=== PATIENT | male | born 1980 | race Caucasian/White ===

== ENCOUNTER 2018-09-11 18:10 | Emergency (ER) | payer MEDICAID, OTHER ==
[2018-09-11 19:26] VITALS: BP 139/83
--- NOTE | 2018-09-11 19:58 | UC ---
Throat Pain/Nasal Farshad HPI - HPI Summary HPI Summary: 38 y/o male presents to the urgent care c/o sinus pain, congestion w/ green nasal discharge and moderate PND for the past 10 days. Pt has Hx or recurrent sinusitis. He saw his PCP about 1 week ago and he recommended symptomatic treatment w/ Sudafed and Rx flonase nasal spray. symptoms worsen yesterday when he developed Rt eye redness. This morning he woke up w/ his Rt eye closed and yellowish crusting discharge. Pt denies fever, dizziness, SOB, chest pain, abdominal pain, N/V/d. - History of Current Complaint Chief Complaint: UCRespiratory Stated Complaint: SINUS AND EYE COMPLAINT Time Seen by Provider: 09/11/18 19:44 Hx Obtained From: Patient Onset/Duration: Gradual Onset, Lasting Weeks - 10 days, Still Present, Worse Since - 3 days Severity: Moderate Pain Intensity: 4 Pain Scale Used: 0-10 Numeric Cough: Nonproductive Associated Signs & Symptoms: Positive: Sinus Discomfort, Nasal Discharge - yellowish. Negative: Wheezing - Epiglottits Risk Factors Epiglottis Risk Factors: Negative - Allergies/Home Medications Allergies/Adverse Reactions: Allergies Allergy/AdvReac Type Severity Reaction Status Date / Time No Known Allergies Allergy Verified 09/11/18 19:26 Home Medications: Home Medications Baclofen TAB* [Lioresal TAB*] 5 mg PO DAILY 09/11/18 [History Confirmed 09/11/18 ] Marijuana 1 09/11/18 [History] PMH/Surg Hx/FS Hx/Imm Hx Previously Healthy: Yes Other Respiratory History: recurrent sinusitis Other History Of: Negative For: HIV, Hepatitis B, Hepatitis C, Anticoagulant Therapy - Surgical History Surgical History: Yes Surgery Procedure, Year, and Place: VASECTOMY - Family History Known Family History: Negative: Cardiac Disease, Hypertension Family History: dyslipidemia - Social History Occupation: Employed Full-time Lives: With Family Alcohol Use: None Substance Use Type: None Smoking Status (MU): Former Smoker Household Exposure Type: Cigars Review of Systems All Other Systems Reviewed And Are Negative: Yes Constitutional: Positive: Negative Skin: Positive: Negative Eyes: Positive: Drainage - yellowish crusting, Eye Redness - RT eye ENT: Positive: Nasal Discharge - yellowish, Sinus Congestion, Sinus Pain/ Tenderness, Other - PND Respiratory: Positive: Cough - dry Cardiovascular: Positive: Negative Gastrointestinal: Positive: Negative Genitourinary: Positive: Negative Motor: Positive: Negative Neurovascular: Positive: Negative Musculoskeletal: Positive: Negative Neurological: Positive: Headache Psychological: Positive: Negative Is Patient Immunocompromised?: No Physical Exam - Summary Physical Exam Summary: Vitals: reviewed General: Well developed, well-nourished male patient with NAD. Head and face: Normocephalic and atraumatic, Positive tenderness over the frontal and maxillary sinuses.. Eyes: Positive: RT eye Conjunctiva Inflamed - Visual acuity: WNL,Visual [place]: full to confrontation. PERRLA, EOMI intact w/out limitation or complaint of pain. eyelashes clear. mild tearing and yellowish drainage observed. No ciliary flush. No chemosis, No photophobia. Normal fundoscopic exam; no proptosis, exophthalmos, nystagmus. ENT: Ears and TM with normal limits. Nose: edematous and erythematous nasal mucosa with with yellowish discharge and erythematous mucosa. Pharynx with erythema, no exudate. +PDN yellowish Neck: Supple, no JVD, no carotid bruits and no lymphadenopathy. Lungs: clear, no rales, no rhonchi, no wheezes. CVS: RRR, S1 and S2 present no murmurs or gallops appreciated. Abdomen: soft nontender with positive bowel sounds. Extremities: no edema noted. Neuro: WNL. Skin: warm and dry Triage Information Reviewed: Yes Vital Signs: Initial Vital Signs Temp 98.1 F 09/11/18 19:23 Pulse 73 09/11/18 19:23 Resp 18 09/11/18 19:23 BP 139/83 09/11/18 19:23 Pulse Ox 99 09/11/18 19:23 Throat Pain/Nasal Course/Dx - Course Course Of Treatment: 38 y/o male presents to the urgent care c/o sinus pain, congestion w/ green nasal discharge and moderate PND for the past 10 days. Pt has Hx or recurrent sinusitis. He saw his PCP about 1 week ago and he recommended symptomatic treatment w/ Sudafed and Rx flonase nasal spray. symptoms worsen yesterday when he developed Rt eye redness. This morning he woke up w/ his Rt eye closed and yellowish crusting discharge. Pt denies fever, dizziness, SOB, chest pain, abdominal pain, N/V/d. Hx obtained. Pt w/ acute bacterial sinusitis and Rt eye bacterial conjunctivitis on examination. Pt with 10 days of symptoms getting worse. Pt Rx Augmentin PO, Ciprofloxacin ophthalmic drops and and flonase nasal spray as directed below to alleviate symptoms. Discharge instructions explained to Pt. Advised to Return to the clinic or PCP if symptoms do not improve.Pt understood and agreed with plan of care. - Differential Dx/Diagnosis Differential Diagnosis/HQI/PQRI: Laryngitis, Pharyngitis, Sinusitis, URI, Other - conjunctitvitis Provider Diagnosis: Acute bacterial sinusitis, Bacterial conjunctivitis of right eye Discharge - Sign-Out/Discharge Documenting (check all that apply): Patient Departure - D/C home All imaging exams completed and their final reports reviewed: No Studies - Discharge Plan Condition: Stable Disposition: HOME Prescriptions: Amoxicillin/Clavulanate TAB* [Augmentin TAB 875*] 875 mg PO BID #20 tab Ciprofloxacin 0.3% OPTH.[place]* [Cipro 0.3% Opth*] 1 drop RIGHT EYE Q2H #1 btl Fluticasone NASAL SPRAY 50MCG* [Flonase NASAL SPRAY 50MCG*] 2 spray BOTH NARES DAILY #1 btl Patient Education Materials: Sinusitis (ED), Conjunctivitis (ED) Referrals: Kristian Isaac MD [Primary Care Provider] - 1 Week Chandler Hernandez MD [Medical Doctor] - If Needed Additional Instructions: 1- Please increase fluid intake and rest. take full course of antibiotic to avoid resistance 2-Use Flonase as directed to help drain fluid. Also buy saline drops to clear sinuses 3-Take Sudafed or Claritin PO to alleviates sinus congestion 4- Use the Ciprofloxacin opthlamic drops as directed to alleviate symptoms. Encourage hand washing to avoid spread 5-Return to the clinic or PCP if symptoms do not improve for further management and treatment - Billing Disposition and Condition Condition: STABLE Disposition: Home
== END 2018-09-11 20:30 | disposition home or self-care (01) ==
LOC: UCEAST 18:10
DX: J01.90 Acute sinusitis, unspecified (principal); B96.89 Other specified bacterial agents as the cause of diseases classified elsewhere; H10.89 Other conjunctivitis; Z87.891 Personal history of nicotine dependence
CPT/HCPCS: 99202; G0463